=== PATIENT | male | born 1985 | race Caucasian/White ===

== ENCOUNTER 2022-07-07 06:53 | Emergency (ER) | payer MEDICAID ==
[~2022-07-07] VITALS: Ht 185.4 cm; Wt 102.0 kg
[2022-07-07 07:04] VITALS: BP 147/90
--- NOTE | 2022-07-07 08:55 | NUR ---
PATIENT LWOBS AROUND 0830, AWARE.
== END 2022-07-07 08:56 | disposition left against medical advice (07) ==
LOC: ER 06:54
DX: H57.11 Ocular pain, right eye (principal); Z53.21 Procedure and treatment not carried out due to patient leaving prior to being seen by health care provider

== ENCOUNTER 2023-10-19 06:17 | Emergency (ER) | payer MEDICAID ==
[~2023-10-19] VITALS: Ht 185.4 cm; Wt 104.0 kg
[2023-10-19 06:23] VITALS: BP 109/69; PULSE 87; RESP 16; TEMP 97.8; O2SAT 97
[2023-10-19] MEDS: ketorolac tromethamine 15mg/ml inj. IM STA (10:35)
== END 2023-10-19 10:37 | disposition home or self-care (01) ==
LOC: ER 06:17
DX: S93.401A Sprain of unspecified ligament of right ankle, initial encounter (principal); X58.XXXA Exposure to other specified factors, initial encounter; Y93.89 Activity, other specified; Y92.89 Other specified places as the place of occurrence of the external cause; Y99.8 Other external cause status
CPT/HCPCS: 73610; 96372; 99283; J1885

== ENCOUNTER 2024-06-03 18:47 | Emergency (ER) | payer MEDICAID ==
[~2024-06-03] VITALS: Ht 185.4 cm; Wt 104.5 kg
[2024-06-03 18:49] VITALS: BP 129/80; PULSE 74; O2SAT 96
[2024-06-03] MEDS ORDERED: ACET-1008 PO (19:23)
[2024-06-03] MEDS ORDERED: IBUP-2417 PO (19:23)
[2024-06-03 19:59] VITALS: RESP 16
[2024-06-03] MEDS: diazepam 5mg tablet PO ONE (19:59)
[2024-06-03] MEDS: ketorolac trometh 30MG/ML vial 30 MG/ML VIAL IM ONE (19:59)
[2024-06-03] MEDS ORDERED: NAPR-56 PO (20:23)
[2024-06-03] MEDS ORDERED: HYDR-3965 PO (20:23)
[2024-06-03 20:38] VITALS: TEMP 97.8
== END 2024-06-03 20:47 | disposition home or self-care (01) ==
LOC: ER 18:47
DX: S39.012A Strain of muscle, fascia and tendon of lower back, initial encounter (principal); M54.42 Lumbago with sciatica, left side; Z79.1 Long term (current) use of non-steroidal anti-inflammatories (NSAID); Z79.899 Other long term (current) drug therapy; X58.XXXA Exposure to other specified factors, initial encounter; Y93.89 Activity, other specified; Y92.89 Other specified places as the place of occurrence of the external cause; Y99.8 Other external cause status
CPT/HCPCS: 72100; 96372; 99283; J1885